=== PATIENT | male | born 1985 | race Caucasian/White ===

== ENCOUNTER 2021-03-29 13:34 | Inpatient (IN) | payer OTHER ==
[~2021-03-29] VITALS: Ht 182.9 cm; Wt 103.7 kg
[2021-03-29 14:35] LABS: BASOPHILS % (AUTO) 0 % (0-1); EOSINOPHILS % (AUTO) 0 % (1-7); LYMPHOCYTES % (AUTO) 9 % (22-44); MEAN CORPUSCULAR HEMOGLOBIN 31.6 pg (27.5-34.5); MEAN CORPUSCULAR HGB CONC 34.1 g/dL (33.2-36.2); MEAN PLATELET VOLUME 8.8 fL (7.4-10.4); MONOCYTES % (AUTO) 3 % (2-9); NEUTROPHILS % (AUTO) 88 % (42-75); PLATELET COUNT 216 x10^3/uL (130-400); RED BLOOD COUNT 5.81 x10^6/uL (4.38-5.82); RED CELL DISTRIBUTION WIDTH 13.4 % (9.4-14.8)
[2021-03-29 14:47] LABS: ALANINE AMINOTRANSFERASE 31 U/L (12-78); ALBUMIN 4.2 g/dL (3.4-5.0); ANION GAP 4 mmol/L (5-15); CALCIUM 10.2 mg/dL (8.5-10.1); CHLORIDE 105 mmol/L (98-107); CREATININE 1.04 mg/dL (0.7-1.3)
[2021-03-29 14:52] LABS: ALKALINE PHOSPHATASE 64 U/L (45-117); BILIRUBIN,TOTAL 0.3 mg/dL (0.2-1.0); TOTAL PROTEIN 8.3 g/dL (6.4-8.2); TROPONIN I < 0.015 ng/mL (0.000-0.045)
--- NOTE | 2021-03-29 18:02 | NUR ---
radiology called to take pt CT
[2021-03-29] MEDS ORDERED: AZITHROMYCIN 500 MG in SODIUM CHLORIDE 0.9% 250 ML IV ONE (19:30)
[2021-03-29] MEDS ORDERED: CEFTRIAXONE 1,000 MG in DEXTROSE 5% 50 ML IVPB ONE (19:30)
[2021-03-29] MEDS ORDERED: SODIUM CHLORIDE 0.9% 1,000ML IVBOLUS ONE (19:30)
--- NOTE | 2021-03-29 19:50 | NUR ---
INITIAL PT CONTACT. PT PRESENTS TO ED C/O COUGH AND DIFFICULTY BREATHING, SEEN AT URGENT CARE, NEGATIVE COVID TEST, GIVEN STEROIDS AND ABX, NO IMPROVEMENT SINCE. PT SITTING UPRIGHT ON CHIQUITA CORONA, VSS. PT DENIES ANY NEEDS AT THIS TIME. CALL LIGHT IN REACH.
[2021-03-29 20:38] LABS: RAPID INFLUENZA A Negative (Negative); RAPID INFLUENZA B Negative (Negative)
[2021-03-29] MEDS: ASCORBIC ACID 500 MG TABLET PO SCH (21:00)
[2021-03-29] MEDS ORDERED: LABETALOL 5MG/ML, 20ML IVPush PRN (21:00)
[2021-03-29] MEDS ORDERED: MELATONIN 5 MG TABLET PO SCH (21:00)
[2021-03-29] MEDS ORDERED: PHARMACY MAY ADJ FOR RENAL FX MC PRN (21:00)
[2021-03-29] MEDS ORDERED: POLYETHYLENE GLYCOL 17 GM PACKET PO PRN (21:00)
[2021-03-29] MEDS ORDERED: ENOXAPARIN 40 MG/0.4 ML SQ SCH (21:00)
[2021-03-29] MEDS ORDERED: ONDANSETRON 2MG/ML, 2ML IVPush PRN (21:00)
[2021-03-29] MEDS: FAMOTIDINE 20 MG TABLET PO SCH (21:00)
[2021-03-29] MEDS ORDERED: ASCORBIC ACID 500 MG TABLET ONE (21:58)
[2021-03-29] MEDS ORDERED: FAMOTIDINE 20 MG TABLET ONE (21:58)
[2021-03-29] MEDS ORDERED: MELATONIN 5 MG TABLET ONE (21:58)
[2021-03-29] MEDS ORDERED: OMNIPAQUE 350 MG/ML, 100ML BOTTLE ONE (22:05)
[2021-03-29 23:32] VITALS: BP 123/70
[2021-03-30] MEDS ORDERED: IPRA3AMP30 INH (00:01)
[2021-03-30] MEDS ORDERED: DEXA6TAB6 PO (00:04)
[2021-03-30 08:00] VITALS: BP 110/72
[2021-03-30] MEDS ORDERED: ZINC SULFATE 220 MG CAPSULE PO SCH ×2 (09:00)
[2021-03-30] MEDS ORDERED: DEXAMETHASONE 4 MG/ML, 1ML IVPush SCH ×2 (09:00)
[2021-03-30] MEDS ORDERED: AZITHROMYCIN 500 MG TABLET PO SCH ×2 (09:00)
[2021-03-30] MEDS ORDERED: ENOXAPARIN 40 MG/0.4 ML SQ SCH (11:00)
[2021-03-30] MEDS ORDERED: ASCORBIC ACID 500 MG TABLET ONE (12:28)
[2021-03-30] MEDS ORDERED: FAMOTIDINE 20 MG TABLET ONE (12:29)
[2021-03-30] MEDS: FAMOTIDINE 20 MG TABLET PO SCH (12:38)
[2021-03-30] MEDS: ASCORBIC ACID 500 MG TABLET PO SCH (12:38)
[2021-03-30 13:18] VITALS: BP 117/70
[2021-03-30] MEDS ORDERED: IBUPROFEN 200 MG TABLET PO PRN (14:00)
[2021-03-30] MEDS ORDERED: ACETAMINOPHEN 325 MG TABLET PO PRN (14:00)
== END 2021-03-30 16:32 | disposition home or self-care (01) | DRG 871 ==
LOC: ED 17:56 → EDIP 20:34 → ED 22:33 → 3N 23:25
PROVIDERS: ADMIT Internal Medicine; ATTEND Hospitalist
DX: A41.9 Sepsis, unspecified organism (principal); J15.9 Unspecified bacterial pneumonia; J96.01 Acute respiratory failure with hypoxia; Z86.711 Personal history of pulmonary embolism; B34.9 Viral infection, unspecified; Z88.8 Allergy status to other drugs, medicaments and biological substances; Z20.822 Contact with and (suspected) exposure to COVID-19
CPT/HCPCS: 36415; 71275; 80053; 83605; 84145; 84484; 85025; 87040; 87400; 93005; 96365; 96366; 96368; 99285; G0378; J0456; J0696; J1100; Q9967; U0005; J7030; J7050; U0003